=== PATIENT | female | born 1990 | race Two or more races ===

== ENCOUNTER → 2018-06-14 13:06 | Outpatient (CLI) | payer BC, SELFPAY ==
[2018-06-19 07:09] LABS: HPV Reflexed? NOT INDICATED
== END ==
PROVIDERS: Visit Provider Obstetrics & Gynecology
DX: Z12.4 Encounter for screening for malignant neoplasm of cervix (principal)
CPT/HCPCS: 88175; G0145

== ENCOUNTER → 2021-07-21 14:53 | Outpatient (CLI) | payer OTHER, SELFPAY ==
[2021-07-27 12:30] LABS: HPV APTIMA, High Risk Negative (Negative)
== END ==
PROVIDERS: Visit Provider Obstetrics & Gynecology
DX: Z12.4 Encounter for screening for malignant neoplasm of cervix (principal)
CPT/HCPCS: 87624; 88175; G0145